=== PATIENT | female | born 1995 | race Hispanic/Latino ===

== ENCOUNTER 2020-09-22 20:25 | Inpatient (IN) | payer MEDICAID ==
[~2020-09-22] VITALS: Ht 157.5 cm; Wt 123.4 kg
[2020-09-22] MEDS ORDERED: OXYTOCIN-LR 20 UNITS/1000 ML 1,000 ML IV SCH (20:45)
[2020-09-22] MEDS ORDERED: ROPIVACAINE 0.2% 100ML VIAL 100 ML EP SCH (20:45)
[2020-09-22] MEDS ORDERED: EPHEDRINE SULFATE 50 MG/ML AMPULE IVP PRN (20:45)
[2020-09-22] MEDS ORDERED: BUTORPHANOL TARTRATE 2 MG/ML IVP PRN (20:45)
[2020-09-22] MEDS ORDERED: LACTATED RINGERS 500 ML 500 ML IV PRN (20:45)
[2020-09-22] MEDS ORDERED: NALOXONE HCL 0.4 MG/1 ML ML IV PRN (20:45)
[2020-09-22] MEDS ORDERED: PHARMACY COMMUNICATION MISC SCH (21:00)
[2020-09-22 21:13] LABS: APPEARANCE,URINE Clear (CLEAR); BILIRUBIN,URINE Negative (NEGATIVE); COLOR,URINE Yellow (YELLOW); GLUCOSE, URINE (UA) Negative (NEGATIVE); KETONES,URINE Negative (NEGATIVE); LEUKOCYTE ESTERASE ,URINE Negative (NEGATIVE); NITRATE,URINE Negative (NEGATIVE); OCCULT BLOOD,URINE Negative (NEGATIVE); PROTEIN,URINE Negative (NEGATIVE)
[2020-09-22 22:05] LABS: HEMATOCRIT 37.8 % (36-48); MEAN CORPUSCULAR HEMOGLOBIN 29.2 pg (27.0-33.0); MEAN CORPUSCULAR HGB CONC 33.3 g/dL (32.0-36.0); MEAN CORPUSCULAR VOLUME 87.5 fL (79-99); RED BLOOD CELL COUNT(AUTO) 4.32 MIL/uL (4.00-5.50); RED CELL DISTRIBUTION WIDTH 13.2 % (11.0-15.5); WHITE BLOOD COUNT (AUTO) 9.2 K/uL (4.8-10.8)
[2020-09-23] MEDS ORDERED: OXYTOCIN-LR 20 UNITS/1000 ML 1,000 ML IV SCH (03:00)
[2020-09-23 03:34] VITALS: BP 106/58
[2020-09-23] MEDS: LACTATED RINGERS 1000ML 1,000 ML IV PRN ×2 (04:48→12:33)
[2020-09-23] MEDS ORDERED: METHYLERGONOVINE MALEATE 0.2 MG/1 ML ML ONE (13:17)
[2020-09-23] MEDS ORDERED: BENZOCAINE/LANOLIN/ALOE VERA 60 ML AEROSOL TP PRN (15:15)
[2020-09-23] MEDS ORDERED: WITCH HAZEL 1 PAD TP PRN (15:15)
[2020-09-23] MEDS ORDERED: DIPH,PERTUSS(ACELL),TET VAC/PF 0.5 ML VIAL IM PRN (15:15)
[2020-09-23] MEDS ORDERED: ACETAMINOPHEN 325 MG TAB PO PRN (15:15)
[2020-09-23] MEDS ORDERED: MEASLES/MUMPS/RUBELLA VACCINE, LIVE 0.5 ML/VIAL SQ PRN (15:15)
[2020-09-23] MEDS ORDERED: ACETAMINOPHEN-CODEINE 300/30MG TAB PO PRN (15:15)
[2020-09-23] MEDS ORDERED: LANOLIN 30GM OINTMENT TP PRN (15:15)
[2020-09-23] MEDS: AMOXICILLIN/POTASSIUM CLAV 875-125 TABLET PO SCH (16:17)
[2020-09-23 16:57] VITALS: BP 120/67
[2020-09-23] MEDS ORDERED: PREN-196 PO (17:14)
[2020-09-23 19:27] VITALS: BP 114/58
[2020-09-23] MEDS: DOCUSATE SODIUM 100 MG CAP PO SCH (22:14)
[2020-09-23] MEDS: IBUPROFEN 600 MG TABLET PO PRN (22:15)
[2020-09-23 23:37] VITALS: BP 95/53
[2020-09-24 03:42] VITALS: BP 86/56
[2020-09-24] MEDS: AMOXICILLIN/POTASSIUM CLAV 875-125 TABLET PO SCH ×2 (04:15→09:00)
[2020-09-24 07:13] VITALS: BP 118/71
[2020-09-24 07:30] VITALS: BP 92/60
[2020-09-24 08:14] LABS: HEPATITIS Bs ANTIGEN SCREEN P Negative (Negative)
[2020-09-24] MEDS: DOCUSATE SODIUM 100 MG CAP PO SCH (09:27)
[2020-09-24] MEDS: IBUPROFEN 600 MG TABLET PO PRN (09:29)
--- NOTE | 2020-09-24 09:58 | NUR ---
report given to Ashlee Fox LVN, for continuation of care Addendum: 09/24/20 at 1002 by JAYA SESAY RN Amended: Links added.
[2020-09-24 11:19] VITALS: BP 94/56
--- NOTE | 2020-09-24 13:40 | NUR ---
DISCHARGE INSTRUCTIONS READ AND EXPLAINED TO PATIENT. NO NEW RX GIVEN. QUESTIONS INVITED AND ANSWERED. PPHEMORRAGE REVIEWED WITH PATIENT.
--- NOTE | 2020-09-24 16:00 | NUR ---
PATIENT LEFT UNIT VIA WHEELCHAIR WITH BABY IN HAND. PERSONAL VEHICLE USED FOR TRANSPORTATION. BABY SECURE IN CARSEAT. NO COMPLAINTS OR CONCERNS ADDRESSED FROM PATIENT ON DISCHARGE
== END 2020-09-24 16:00 | disposition home or self-care (01) | DRG 560 ==
LOC: LDH 20:25 → WSH 09-23 16:55
PROVIDERS: ADMIT Obstetrics & Gynecology; ATTEND Obstetrics & Gynecology
PROC: 10E0XZZ Delivery of Products of Conception, External Approach (ICD-10-PCS; principal; 2020-09-23)
PROC: 3E0P7VZ Introduction of Hormone into Female Reproductive, Via Natural or Artificial Opening (ICD-10-PCS; 2020-09-23)
PROC: 10907ZC Drainage of Amniotic Fluid, Therapeutic from Products of Conception, Via Natural or Artificial Opening (ICD-10-PCS; 2020-09-23)
PROC: 3E0234Z Introduction of Serum, Toxoid and Vaccine into Muscle, Percutaneous Approach (ICD-10-PCS; 2020-09-23)
PROC: 3E0134Z Introduction of Serum, Toxoid and Vaccine into Subcutaneous Tissue, Percutaneous Approach (ICD-10-PCS; 2020-09-23)
DX: O99.214 Obesity complicating childbirth (principal); E66.9 Obesity, unspecified; Z3A.39 39 weeks gestation of pregnancy; Z37.0 Single live birth; Z23 Encounter for immunization
CPT/HCPCS: 36415; 81003; 85027; 86592; 86850; 86900; 86901; 87340; A4351; G0378; J0595; J2210; J2590; J7120